=== PATIENT | female | born 2000 | race Caucasian/White ===

== ENCOUNTER 2021-08-10 08:04 | Outpatient (REF) | payer OTHER, SELFPAY ==
[2021-08-10 17:01] LABS: CT PCR NOT DETECTED (Not Detect.); NG PCR NOT DETECTED (Not Detect.)
[2021-08-11 09:50] LABS: BV Int Neg Control Negative (Negative); BV Int Pos Control Positive (Positive)
== END 2021-08-10 08:05 | disposition home or self-care (01) ==
LOC: HO.LAB 08:04
PROVIDERS: PCP Hospitalist; Visit Provider Advanced Practice Midwife
DX: Z01.411 Encounter for gynecological examination (general) (routine) with abnormal findings (principal); N89.8 Other specified noninflammatory disorders of vagina; Z20.2 Contact with and (suspected) exposure to infections with a predominantly sexual mode of transmission
CPT/HCPCS: 87480; 87491; 87510; 87591; 87660

== ENCOUNTER 2022-09-27 09:00 | Outpatient (REF) | payer OTHER, SELFPAY ==
[2022-09-27 17:10] LABS: CT PCR NOT DETECTED (Not Detect.); NG PCR NOT DETECTED (Not Detect.)
== END 2022-09-27 09:01 | disposition home or self-care (01) ==
LOC: HO.LNP 09:00
PROVIDERS: Visit Provider Advanced Practice Midwife
DX: Z01.419 Encounter for gynecological examination (general) (routine) without abnormal findings (principal); Z20.2 Contact with and (suspected) exposure to infections with a predominantly sexual mode of transmission
CPT/HCPCS: 87491; 87591; 88142

== ENCOUNTER 2023-10-03 08:56 | Outpatient (REF) | payer OTHER, SELFPAY ==
[2023-10-03 11:15] LABS: HBc Num1 0.08 S/CO (0.00-0.79); HIV AB/AG Nonreactive (Nonreactive); HIV Num 1 0.06 S/CO (0.00-0.99); Hepatitis B Core Antibody Nonreactive (Nonreactive); Syphilis Screen Nonreactive (Nonreactive); ~HepC Num1 0.06 S/CO (0.00-0.79); ~Hepatitis C Antibody Nonreactive (Nonreactive)
[2023-10-03 13:47] LABS: CT PCR NOT DETECTED (Not Detect.); NG PCR NOT DETECTED (Not Detect.)
[2023-10-04 12:02] LABS: BV Int Neg Control Negative (Negative); BV Int Pos Control Positive (Positive)
== END 2023-10-03 08:57 | disposition home or self-care (01) ==
LOC: HO.LAB 08:56
PROVIDERS: Visit Provider Advanced Practice Midwife
DX: Z01.419 Encounter for gynecological examination (general) (routine) without abnormal findings (principal); L73.1 Pseudofolliculitis barbae; L72.3 Sebaceous cyst; Z20.2 Contact with and (suspected) exposure to infections with a predominantly sexual mode of transmission
CPT/HCPCS: 0353U; 86704; 86780; 86803; 87389; 87480; 87510; 87660

== ENCOUNTER 2023-10-03 08:56 | Outpatient (AMB) | payer OTHER, SELFPAY ==
--- NOTE | 2023-10-03 09:02 | A.OFFVIS_ITS ---
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 Gas Combustion Engineer: Gas Combustion Engineer Present (Chelsey) Allergies No Known Allergies [No Known Allergies*] Allergy (Verified 10/03/23 09:03) Is last menstrual period known: Yes Last menstrual period: 09/25/23 HPI HPI Comments History of Present Illness Details The patient is a 22 year old premenopausal woman presenting for her annual exam.? Doing well with concerns of bump located just above her vagina. Associated with pain to the touch and with compression, such as wearing pads. Onset several months ago. Tries to eat healthy and stays active with exercise, she feels she could improve these.? Currently sexually active. Uses condoms for BC.? Regular monthly periods. Denies vaginal itching and irritation.? STD screening offered; she accepts.?? Denies family history of breast, colon, ovarian cancer, or diabetes.? Last pap smear 09/27/2023, was negative. [facility] Medical History Potential exposure to STD Scoliosis Asthma Surgical History No pertinent past surgical history Family History Mother Asthma Paternal Grandfather Prostate cancer Father Drug abuse Social History Household Members: Family Housing: House Alcohol intake: never Patient Tobacco Use Status: Never used Tobacco Current occupational status: employed and student Current occupation: [employer] behavior place Sexual orientation: Straight/Heterosexual Gender identity: Female Female Reproductive History Menstrual Duration of menses: 6-7 days Date of last menstrual period: 09/25/23 control method: condoms Total pregnancies: 0 Date of last pap smear: 09/27/22 (neg) Review of Systems Const All systems reviewed & are unremarkable except as noted in HPI and below Reports as per HPI Eyes Reports no additional complaints ENT Reports no additional complaints Card Reports no additional complaints Resp Reports no additional complaints GI Reports as per HPI and Reports no additional complaints Reports as per HPI Musc Reports no additional complaints Skin/Breast Reports as per HPI Neuro Reports no additional complaints Psych Reports no additional complaints Endo Reports no additional complaints Gato/Lymph Reports no additional complaints Aller/Immun Reports no additional complaints Physical Exam Vital Signs: Last Vital Signs BP 110/72 10/03/23 09:03 BMI result Body Mass Index 33.0 Const General: cooperative, healthy appearing, no acute distress, well developed and alert Orientation/consciousness: patient oriented x3 HEENT Head: Yes normal to inspection Eyes General: appearance normal, both eyes and all related structures Neck Neck: Yes normal visual inspection Thyroid: Thyroid normal Chest Chest palpation & inspection: normal inspection of the chest and other (no puckering, dimpling, peau de orange, retraction, discharge, masses) Breast/axilla inspection: normal inspection of the breasts Breast/axilla palpation: normal palpation of the breasts Resp Effort & Inspection: normal respiratory effort GI Inspection: Yes normal to inspection Palpation (GI): Soft to palpation Rectal Exam - Female: deferred General: Yes bladder normal to palpation External Female Exam: normal external appearance (left mons, 1cm. Slightly tender. Scar tissue on top with cystic changes) and normal appearance of the urethra Speculum Exam - Vagina: normal appearance of the vagina, normal palpation and normal vaginal discharge Speculum Exam - Cervix: normal appearance of the cervix and normal palpation Bimanual exam- vagina & uterus: normal bimanual exam, normal palpation, uterine size normal, bladder normal to palpation, normal palpation and non-tender Bimanual Exam- Adnexa, other: no masses Skin General skin exam: no rashes or lesions noted Rashes: no rashes Neuro General: patient oriented x3 Cognition (Neuro): normal cognition Extrem General: Yes normal to inspection Psych Attitude: cooperative Thought process: Normal thought process present Assessment & Plan Assessment & Plan (1) Encounter for annual routine gynecological examination: Code(s): Z01.419 - Encounter for gynecological examination (general) (routine) without abnormal findings Plan: Discussed: Current recommendations for pap smears per ASCCP guidelines. Breast awareness and periodic self breast exams. Maintaining a healthy lifestyle including a well balanced diet and routine exercise. Encouraged to continue condom use for STD and prevention. STI, BV, and HIV testing ordered. Encouraged patient to sign up for patient portal. All of her questions and concerns were addressed to the best of my ability. She will return in one year for AG. (2) Ingrown hair: Code(s): L73.1 - Pseudofolliculitis barbae Plan: On Mons. Recommended warm compress. Do not shave. If it becomes inflamed again she should return for a follow-up (3) Sebaceous cyst: Code(s): L72.3 - Sebaceous cyst Orders: Orders Bacterial Vaginosis Panel Today Z20.2 - Contact with and (suspected) exposure to infections with a predominantly sexual mode of transmission Hepatitis C Antibody Today Z20.2 - Contact with and (suspected) exposure to infections with a predominantly sexual mode of transmission Hepatitis B Core Antibody Today Z20.2 - Contact with and (suspected) exposure to infections with a predominantly sexual mode of transmission Syphilis Screen Today Z20.2 - Contact with and (suspected) exposure to infections with a predominantly sexual mode of transmission HIV Ab/Ag Today Z20.2 - Contact with and (suspected) exposure to infections with a predominantly sexual mode of transmission CT NG by PCR Today Z20.2 - Contact with and (suspected) exposure to infections with a predominantly sexual mode of transmission Coding Level of Care Code Est Pt Prev Care 18-39y(05063) Diagnoses Encounter for annual routine gynecological examination Z01.419 Ingrown hair L73.1 Sebaceous cyst L72.3
[2023-10-03 09:03] VITALS: BP 110/72; BMI 33.0
== END 2023-10-03 09:29 | disposition home or self-care (01) ==
PROVIDERS: Visit Provider Advanced Practice Midwife
DX: Z01.419 Encounter for gynecological examination (general) (routine) without abnormal findings (principal); L73.1 Pseudofolliculitis barbae; L72.3 Sebaceous cyst
CPT/HCPCS: 99395

== ENCOUNTER 2023-10-03 09:22 | Outpatient (REF) | payer OTHER, SELFPAY | END 2023-10-03 09:23 | disposition home or self-care (01) | LOC: HO.LNP 09:22 | PROVIDERS: Visit Provider Advanced Practice Midwife | DX: Z13.89 Encounter for screening for other disorder (principal) ==

== ENCOUNTER 2023-12-13 11:41 | Outpatient (AMB) | payer OTHER, SELFPAY ==
--- NOTE | 2023-12-13 11:42 | MHC.OFFVIS ---
Intake Vital Signs 12/13/23 11:43 Height 5 ft 4 in Weight 199 lb BMI 34.2 BP 118/76 Intake Visit Reasons: STD check Cellulose Insulation Helper: Cellulose Insulation Helper Present (Chelsey) Allergies No Known Allergies [No Known Allergies*] Allergy (Verified 12/13/23 11:43) Is last menstrual period known: Yes Last menstrual period: 11/29/23 HPI HPI Comments History of Present Illness Details Patient is here today for STD testing. She reports her partner had been recently diagnosed with chlamydia. She denies any symptoms of pelvic pain or dysuria. She denies also any order odors itching or irritation. [facility] Medical History Potential exposure to STD Scoliosis Asthma Surgical History No pertinent past surgical history Family History Mother Asthma Paternal Grandfather Prostate cancer Father Drug abuse Social History Household Members: Family Housing: House Alcohol intake: never Patient Tobacco Use Status: Never used Tobacco Current occupational status: employed and student Current occupation: [employer] behavior [address] Sexual orientation: Straight/Heterosexual Gender identity: Female Female Reproductive History Menstrual Date of last menstrual period: 11/29/23 Review of Systems Const All systems reviewed & are unremarkable except as noted in HPI and below Physical Exam Vital Signs: Last Vital Signs BP 118/76 12/13/23 11:43 BMI result Body Mass Index 34.2 Const General: cooperative, healthy appearing and no acute distress Orientation/consciousness: patient oriented x3 GI Inspection: Yes normal to inspection Palpation (GI): Soft to palpation and Other GI palpation findings present (Nontender) Rectal Exam - Female: visual inspection normal General: Yes bladder normal to palpation External Female Exam: normal appearance of the urethra Speculum Exam - Vagina: normal appearance of the vagina, normal palpation and normal vaginal discharge Speculum Exam - Cervix: normal appearance of the cervix and normal palpation Bimanual exam- vagina & uterus: normal bimanual exam, normal palpation, uterine size normal, bladder normal to palpation, normal palpation, uterine shape normal and non-tender Bimanual Exam- Adnexa, other: normal adnexae Neuro General: patient oriented x3 Assessment & Plan Assessment & Plan (1) Exposure to chlamydia: Code(s): Z20.2 - Contact with and (suspected) exposure to infections with a predominantly sexual mode of transmission Plan Discuss treatment. Med use. Await culture results for further plan of care. Strongly advised use of condoms consistently. Offered and recommended HIV testing patient declines as it is up-to-date. Return to the office p.r.n.. Annual scheduled September 2024. Medications: New doxycycline hyclate 100 mg PO BID 7 days 14 caps 0RF Coding Level of Care Code Est Pt Level 3 (38306) Diagnoses Exposure to chlamydia Z20.2
[2023-12-13 11:43] VITALS: BP 118/76; BMI 34.2
== END 2023-12-13 12:11 | disposition home or self-care (01) ==
LOC: HO.HWS 11:41
PROVIDERS: Visit Provider Advanced Practice Midwife
DX: Z20.2 Contact with and (suspected) exposure to infections with a predominantly sexual mode of transmission (principal)
CPT/HCPCS: 99213

== ENCOUNTER 2023-12-13 11:41 | Outpatient (REF) | payer OTHER, SELFPAY ==
[2023-12-13 17:36] LABS: CT PCR NOT DETECTED (Not Detect.); NG PCR NOT DETECTED (Not Detect.)
[2023-12-14 13:43] LABS: BV Int Neg Control Negative (Negative); BV Int Pos Control Positive (Positive)
== END 2023-12-13 11:42 | disposition home or self-care (01) ==
LOC: HO.LAB 11:41
PROVIDERS: Visit Provider Advanced Practice Midwife
DX: Z20.2 Contact with and (suspected) exposure to infections with a predominantly sexual mode of transmission (principal)
CPT/HCPCS: 0353U; 87480; 87510; 87660

== ENCOUNTER 2023-12-13 12:37 | Outpatient (REF) | payer OTHER, SELFPAY | END 2023-12-13 12:38 | disposition home or self-care (01) | LOC: HO.LNP 12:37 | PROVIDERS: Visit Provider Advanced Practice Midwife | DX: Z13.89 Encounter for screening for other disorder (principal) ==